=== PATIENT | male | born 1980 | race Caucasian/White ===

== ENCOUNTER → 2017-01-25 | Outpatient (CLI) | payer OTHER ==
[~2017-01-25] MED LIST: COMPAZINE10 MG PO; COUMADIN10 M1 PO; COUMADIN5 M2 PO; COUMADIN7.5 M1 PO; DECADRON4 M1 PO; DILAUDID2 M1 PO; FERROUS SULFAT325 MG PO; KEPPRA500 MG PO; LEVETIRACETAM500 MG PO; MULTIVITAMIN1 CTB PO; OMEPRAZOLE D/R20 MG PO; ONDANSETRON HYDR4 MG PO; STOOL SOFTENER100 MG PO
== END | disposition home or self-care (01) ==
LOC: CT 01:57
DX: Z51.5 Encounter for palliative care (principal); C79.31 Secondary malignant neoplasm of brain; C43.9 Malignant melanoma of skin, unspecified; R45.89 Other symptoms and signs involving emotional state; N28.1 Cyst of kidney, acquired

== ENCOUNTER 2017-05-16 08:21 | Emergency (ER) | payer OTHER ==
[~2017-05-16] VITALS: Ht 182.8 cm; Wt 54.4 kg
[2017-05-16] MEDS ORDERED: CELEXA10 MG PO (08:37)
[2017-05-16 08:50] LABS: BILIRUBIN 1+ (NEGATIVE); BLOOD NEGATIVE (NEGATIVE); CLARITY CLOUDY (CLEAR); COLOR YELLOW (YELLOW); GLUCOSE NEGATIVE (NEGATIVE); KETONE NEGATIVE (NEGATIVE); LEUKO ESTERASE NEGATIVE (NEGATIVE); NITRITE NEGATIVE (NEGATIVE); SPECIFIC GRAVITY 1.025 (1.005-1.030)
[2017-05-16 08:51] LABS: BASO % 0.2 % (0.0-1.0); EOS % 0.2 % (1.0-4.0); HEMATOCRIT 37.8 % (42.0-52.0); HEMOGLOBIN 12.9 g/dl (14.0-18.0); LYMPH # 0.4 10*3/uL (1.3-4.4); LYMPH % 8.5 % (27.0-41.0); MEAN CELL VOLUME 88.9 fl (80.0-94.0); MEAN CORPUSCULAR HGB 30.4 pg (27.0-31.0); MEAN CORPUSCULAR HGB CONC 34.1 g/dl (33.0-37.0); MEAN PLATELET VOLUME 9.5 fl (9.6-12.3); MONO # 0.4 10*3/uL (0.1-1.0); MONO % 8.2 % (3.0-9.0); NEUT # 4.3 10*3/uL (2.3-7.9); NEUT % 82.7 % (47.0-73.0); PLATELET COUNT AUTOMATED 199 10*3/uL (130-400); RED BLOOD COUNT 4.25 10*6/uL (4.50-5.90); RED CELL DISTRI WIDTH 12.9 % (0-14.5); WHITE BLOOD COUNT 5.2 10*3/uL (4.8-10.8)
[2017-05-16 09:05] LABS: MUCOUS 1+
[2017-05-16 09:07] LABS: ALBUMIN 3.8 gm/dl (3.1-4.5); ALKALINE PHOSPHATASE 65 U/L (45-117); BUN 15 mg/dl (7-24); CHLORIDE 95 mmol/L (98-107); CREATININE 1.01 mg/dL (0.70-1.30); MAGNESIUM 2.3 mg/dL (1.5-2.1); POTASSIUM 3.4 mmol/L (3.5-5.1); SGOT/AST 14 IU/L (3-35); SGPT/ALT 16 U/L (12-78); SODIUM 136 mmol/L (136-145); TOTAL PROTEIN 7.1 gm/dL (6.4-8.2)
== END 2017-05-16 09:42 | disposition short-term general hospital (02) ==
LOC: ED 08:21
PROVIDERS: Emergency Medicine
DX: R41.0 Disorientation, unspecified (principal); Z88.8 Allergy status to other drugs, medicaments and biological substances; Z79.899 Other long term (current) drug therapy

== ENCOUNTER 2017-08-22 20:23 | Emergency (ER) | payer OTHER ==
[~2017-08-22] VITALS: Ht 180.3 cm; Wt 78.0 kg
[~2017-08-22 20:23] MED LIST changes: +CELEXA10 MG PO
[2017-08-22] MEDS ORDERED: TAFINLAR PO (20:52)
[2017-08-22] MEDS ORDERED: MEKINIST PO (20:52)
[2017-08-22] MEDS ORDERED: EPIPEN 2-P0.3 MG/0.3 IJ (22:35)
== END 2017-08-22 22:46 | disposition home or self-care (01) ==
LOC: ED 20:23
DX: T78.40XA Allergy, unspecified, initial encounter (principal); F10.10 Alcohol abuse, uncomplicated; Z88.8 Allergy status to other drugs, medicaments and biological substances; Z91.09 Other allergy status, other than to drugs and biological substances; Z79.899 Other long term (current) drug therapy; X58.XXXA Exposure to other specified factors, initial encounter

== ENCOUNTER 2017-12-11 21:32 | Inpatient (IN) | payer OTHER ==
[~2017-12-11] VITALS: Ht 180.3 cm; Wt 76.4 kg
--- NOTE | ~2017-12-11 | O ---
[place], [place] OPERATIVE NOTE NAME: MAI PETERS [facility] #: [id number] UNIT #: [id number] ROOM: 524 DOCTOR: JAYLON BROWN MDMICHELEERICH BIRTHDATE: [birth year] DOS: 12/14/2017 GASTROENDOSCOPIC REPORT INDICATIONS: This is a 37-year-old patient who has presented with relentless emesis to the Emergency Room. The patient is known with brain tumor. Detail of the tumor is not known as far as the pathology to us. However, craniotomy and tumor reduction has been done apparently in [facility] years ago. The patient continued to have distress with nausea, vomiting and CT scan of the head was done. There is a left-sided shunt in place. No acute finding otherwise, CT scan of the abdomen and pelvis was done, question of gastric wall thickening was in differential. PAST MEDICAL HISTORY: Associated with no other except as above as well as depression. Brain cancer history and history of melanoma. 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 FAMILY HISTORY: Noncontributory. ALLERGIES: LISINOPRIL AND COMPAZINE. HOME MEDICATIONS: Reviewed. He has been also on iron supplementation. PROCEDURE: Today's procedure part of investigation is panendoscopy plus biopsy. PREMEDICATION: Versed and Diprivan. SCOPE: Olympus forward-viewing gastroscope Q10 video. REPORT: After putting the patient in left lateral position and application of lubricant to the scope, the scope was introduced. Thereafter, under direct visualization, advanced through the length of esophagus without difficulty. Gastric pouch was entered. Evidence of bile reflux gastritis was noticed. Duodenal bulb, second and third part within normal limits. No obstruction was noticed. Scope was withdrawn. Bile reflux was suctioned out to prevent aspiration and air was suctioned out after antral biopsy. The patient extubated, tolerated the procedure well. IMPRESSION: Gastritis of bile reflux type. PLAN AND DISCUSSION: Thickening of the stomach could be secondary to gastritis reaction. Further discussion, the patient can be given as well as Protonix 40 mg daily, sucralfate 1 gram ____ at bedtime, elevation of the head of the bed 6-inch all time and we will see if he would respond to Phenergan or Benadryl therapy since he apparently does not like Zofran and otherwise if not Reglan 5 mg daily would promote his gastric emptying as well, which would be beneficial for him. [place], [place] OPERATIVE NOTE NAME: MAI PETERS Ad[facility] UNIT #: [id number] ROOM: 524 DOCTOR: JANIYA BROWN MD BIRTHDATE: [birth year] JANIYA BROWN MD CM:OPRECORD:OPERATIVE NOTE [id number] JANIYA BROWN MD 12/14/17 1450 interface
[~2017-12-11 21:32] MED LIST changes: +EPIPEN 2-P0.3 MG/0.3 IJ; +MEKINIST PO; +TAFINLAR PO
[2017-12-11 21:45] VITALS: BP 142/86
[2017-12-11 22:21] LABS: BASO % 0.2 % (0.0-1.0); HEMATOCRIT 36.6 % (42.0-52.0); HEMOGLOBIN 12.6 g/dl (14.0-18.0); LYMPH # 0.3 10*3/uL (1.3-4.4); LYMPH % 5.9 % (27.0-41.0); MEAN CORPUSCULAR HGB 30.3 pg (27.0-31.0); MEAN CORPUSCULAR HGB CONC 34.4 g/dl (33.0-37.0); MEAN PLATELET VOLUME 9.6 fl (9.6-12.3); MONO # 0.4 10*3/uL (0.1-1.0); MONO % 6.9 % (3.0-9.0); NEUT # 4.4 10*3/uL (2.3-7.9); NEUT % 86.8 % (47.0-73.0); PLATELET COUNT AUTOMATED 121 10*3/uL (130-400); RED BLOOD COUNT 4.16 10*6/uL (4.50-5.90); WHITE BLOOD COUNT 5.1 10*3/uL (4.8-10.8)
[2017-12-11 22:34] LABS: ALBUMIN 3.7 gm/dl (3.1-4.5); ALKALINE PHOSPHATASE 79 U/L (45-117); BUN 10 mg/dl (7-24); CHLORIDE 99 mmol/L (98-107); CREATININE 1.03 mg/dL (0.70-1.30); POTASSIUM 3.3 mmol/L (3.5-5.1); SGOT/AST 13 IU/L (3-35); SGPT/ALT 16 U/L (12-78); SODIUM 137 mmol/L (136-145); TOTAL PROTEIN 7.2 gm/dL (6.4-8.2)
[2017-12-11 22:37] VITALS: BP 140/92
[2017-12-11 23:00] VITALS: BP 129/87
[2017-12-11 23:30] VITALS: BP 135/85
[2017-12-12 06:33] LABS: BASO % 0.2 % (0.0-1.0); HEMATOCRIT 36.1 % (42.0-52.0); HEMOGLOBIN 11.8 g/dl (14.0-18.0); LYMPH # 0.4 10*3/uL (1.3-4.4); LYMPH % 8.8 % (27.0-41.0); MEAN CELL VOLUME 89.1 fl (80.0-94.0); MEAN CORPUSCULAR HGB 29.1 pg (27.0-31.0); MEAN CORPUSCULAR HGB CONC 32.7 g/dl (33.0-37.0); MEAN PLATELET VOLUME 9.8 fl (9.6-12.3); MONO # 0.5 10*3/uL (0.1-1.0); MONO % 9.4 % (3.0-9.0); NEUT # 3.9 10*3/uL (2.3-7.9); NEUT % 81.4 % (47.0-73.0); PLATELET COUNT AUTOMATED 130 10*3/uL (130-400); RED BLOOD COUNT 4.05 10*6/uL (4.50-5.90); RED CELL DISTRI WIDTH 15.3 % (0-14.5); WHITE BLOOD COUNT 4.8 10*3/uL (4.8-10.8)
[2017-12-12 06:54] LABS: ALBUMIN 3.5 gm/dl (3.1-4.5); BUN 10 mg/dl (7-24); CHLORIDE 102 mmol/L (98-107); CHOLESTEROL 140 mg/dL (<200); CREATININE 0.87 mg/dL (0.70-1.30); POTASSIUM 3.6 mmol/L (3.5-5.1); SGOT/AST 13 IU/L (3-35); SGPT/ALT 18 U/L (12-78); SODIUM 140 mmol/L (136-145); TOTAL PROTEIN 6.6 gm/dL (6.4-8.2); TRIGLYCERIDES 51 mg/dl (<150); VLDL CHOLESTEROL 10 mg/dL (6-40)
[2017-12-12 07:01] LABS: ALKALINE PHOSPHATASE 77 U/L (45-117); FREE T4 1.17 ng/dl (0.76-1.46); HDL CHOLESTEROL 47 mg/dl (40-60); LDL CHOLESTEROL 83 mg/dL (9-159)
[2017-12-12 08:00] VITALS: BP 118/69
[2017-12-12 09:15] LABS: VITAMIN D, 25-HYDROXY 10.3 ng/mL (30-100)
[2017-12-12 12:00] VITALS: BP 128/80
[2017-12-12 16:00] VITALS: BP 127/78
[2017-12-12 20:00] VITALS: BP 129/80
[2017-12-13] VITALS: BP 132/76
[2017-12-13 06:44] LABS: ALBUMIN 3.3 gm/dl (3.1-4.5); ALKALINE PHOSPHATASE 69 U/L (45-117); BUN 9 mg/dl (7-24); CHLORIDE 104 mmol/L (98-107); CREATININE 0.79 mg/dL (0.70-1.30); POTASSIUM 3.3 mmol/L (3.5-5.1); SGOT/AST 12 IU/L (3-35); SGPT/ALT 13 U/L (12-78); SODIUM 140 mmol/L (136-145)
[2017-12-13 06:48] LABS: BASO % 0.5 % (0.0-1.0); EOS % 0.5 % (1.0-4.0); HEMATOCRIT 34.2 % (42.0-52.0); LYMPH # 0.5 10*3/uL (1.3-4.4); LYMPH % 12.9 % (27.0-41.0); MEAN CORPUSCULAR HGB 29.3 pg (27.0-31.0); MEAN CORPUSCULAR HGB CONC 32.2 g/dl (33.0-37.0); MEAN PLATELET VOLUME 10.2 fl (9.6-12.3); MONO # 0.3 10*3/uL (0.1-1.0); MONO % 7.5 % (3.0-9.0); NEUT # 2.9 10*3/uL (2.3-7.9); NEUT % 78.1 % (47.0-73.0); PLATELET COUNT AUTOMATED 101 10*3/uL (130-400); RED BLOOD COUNT 3.76 10*6/uL (4.50-5.90); WHITE BLOOD COUNT 3.7 10*3/uL (4.8-10.8)
[2017-12-13 07:00] LABS: INTERNATIONAL NORM RATIO 1.1 (2.0-3.5)
[2017-12-13 08:00] VITALS: BP 134/83
[2017-12-13 12:00] VITALS: BP 128/82
[2017-12-13 16:00] VITALS: BP 132/77
[2017-12-13 20:00] VITALS: BP 138/82
[2017-12-14] VITALS (9 sets, daily range): BP systolic 95–149; BP diastolic 71–95
[2017-12-15] VITALS: BP 137/90
[2017-12-15 08:00] VITALS: BP 135/85
[2017-12-15 12:00] VITALS: BP 134/87
[2017-12-15 20:00] VITALS: BP 132/89
[2017-12-16] VITALS: BP 140/86
[2017-12-16 06:10] LABS: BASO % 0.6 % (0.0-1.0); EOS # 0.1 10*3/uL (0.0-0.4); EOS % 1.7 % (1.0-4.0); HEMATOCRIT 37.9 % (42.0-52.0); HEMOGLOBIN 12.6 g/dl (14.0-18.0); LYMPH # 0.5 10*3/uL (1.3-4.4); LYMPH % 14.4 % (27.0-41.0); MEAN CELL VOLUME 87.9 fl (80.0-94.0); MEAN CORPUSCULAR HGB 29.2 pg (27.0-31.0); MEAN CORPUSCULAR HGB CONC 33.2 g/dl (33.0-37.0); MEAN PLATELET VOLUME 10.3 fl (9.6-12.3); MONO # 0.3 10*3/uL (0.1-1.0); NEUT # 2.6 10*3/uL (2.3-7.9); PLATELET COUNT AUTOMATED 121 10*3/uL (130-400); RED BLOOD COUNT 4.31 10*6/uL (4.50-5.90); RED CELL DISTRI WIDTH 14.8 % (0-14.5); WHITE BLOOD COUNT 3.6 10*3/uL (4.8-10.8)
[2017-12-16 06:15] LABS: BUN 2 mg/dl (7-24); CHLORIDE 105 mmol/L (98-107); CREATININE 0.85 mg/dL (0.70-1.30); POTASSIUM 3.1 mmol/L (3.5-5.1); SODIUM 143 mmol/L (136-145)
[2017-12-16 08:00] VITALS: BP 130/94
[2017-12-16 12:00] VITALS: BP 129/91
[2017-12-16 16:00] VITALS: BP 132/83
[2017-12-16 20:00] VITALS: BP 131/92
[2017-12-17] VITALS: BP 142/88
[2017-12-17 06:27] LABS: BASO % 0.8 % (0.0-1.0); EOS # 0.1 10*3/uL (0.0-0.4); EOS % 1.8 % (1.0-4.0); HEMATOCRIT 36.9 % (42.0-52.0); HEMOGLOBIN 12.5 g/dl (14.0-18.0); LYMPH # 0.6 10*3/uL (1.3-4.4); LYMPH % 14.8 % (27.0-41.0); MEAN CELL VOLUME 88.1 fl (80.0-94.0); MEAN CORPUSCULAR HGB 29.8 pg (27.0-31.0); MEAN CORPUSCULAR HGB CONC 33.9 g/dl (33.0-37.0); MEAN PLATELET VOLUME 10.4 fl (9.6-12.3); MONO # 0.3 10*3/uL (0.1-1.0); MONO % 8.3 % (3.0-9.0); NEUT # 2.9 10*3/uL (2.3-7.9); PLATELET COUNT AUTOMATED 126 10*3/uL (130-400); RED BLOOD COUNT 4.19 10*6/uL (4.50-5.90); WHITE BLOOD COUNT 3.9 10*3/uL (4.8-10.8)
[2017-12-17 06:54] LABS: ALBUMIN 3.3 gm/dl (3.1-4.5); ALKALINE PHOSPHATASE 65 U/L (45-117); BUN 4 mg/dl (7-24); CHLORIDE 105 mmol/L (98-107); POTASSIUM 3.2 mmol/L (3.5-5.1); SGOT/AST 15 IU/L (3-35); SGPT/ALT 14 U/L (12-78); SODIUM 142 mmol/L (136-145); TOTAL PROTEIN 6.4 gm/dL (6.4-8.2)
[2017-12-17 08:00] VITALS: BP 145/88
[2017-12-17 12:00] VITALS: BP 141/90
[2017-12-17] MEDS ORDERED: VITAMIN D-32000 UNIT PO (14:35)
== END 2017-12-17 16:22 | disposition short-term general hospital (02) | DRG 392 ==
LOC: ED 21:32 → 5E 23:14
PROVIDERS: Emergency Medicine; Family Medicine; Internal Medicine Hospice and Palliative Medicine; Registered Nurse; Student in an Organized Health Care Education/Training Program
PROC: 0DB68ZX Excision of Stomach, Via Natural or Artificial Opening Endoscopic, Diagnostic (ICD-10-PCS; principal; 2017-12-14)
DX: K29.70 Gastritis, unspecified, without bleeding (principal); C43.9 Malignant melanoma of skin, unspecified; E44.0 Moderate protein-calorie malnutrition; C79.31 Secondary malignant neoplasm of brain; E83.51 Hypocalcemia; K21.9 Gastro-esophageal reflux disease without esophagitis; E87.6 Hypokalemia; E80.6 Other disorders of bilirubin metabolism; H54.7 Unspecified visual loss; K82.8 Other specified diseases of gallbladder; Z82.49 Family history of ischemic heart disease and other diseases of the circulatory system; Z88.8 Allergy status to other drugs, medicaments and biological substances; Z79.899 Other long term (current) drug therapy; Z98.2 Presence of cerebrospinal fluid drainage device; Z68.23 Body mass index [BMI] 23.0-23.9, adult; Z92.21 Personal history of antineoplastic chemotherapy